=== PATIENT | female | born 2000 | race Caucasian/White ===

== ENCOUNTER 2022-07-26 02:37 | Emergency (ER) | payer OTHER ==
[2022-07-26 02:48] VITALS: BMI 27.4
[2022-07-26] MEDS ORDERED: ACETAMINOPHEN 325 MG TABLET (FP) PO ONE (03:25)
[2022-07-26] MEDS ORDERED: ONDANSETRON *ODT* 4 MG TABLET SL ONE (03:25)
[2022-07-26] MEDS ORDERED: ONDANSETRON *ODT* 4 MG TABLET ONE (03:34)
[2022-07-26] MEDS ORDERED: ACETAMINOPHEN 325 MG TABLET (FP) ONE (03:34)
[2022-07-26 05:18] VITALS: PULSE 66; TEMP 98.1
[2022-07-26 06:14] VITALS: BP 117/69; RESP 16
== END 2022-07-26 06:14 | disposition short-term general hospital (02) ==
LOC: JER 02:37
DX: S06.0X9A Concussion with loss of consciousness of unspecified duration, initial encounter (principal); R20.2 Paresthesia of skin; W21.02XA Struck by soccer ball, initial encounter
CPT/HCPCS: 70450-TC; 72125-TC; 99284-25; Q0162